=== PATIENT | female | born 1935 | race Caucasian/White ===

== ENCOUNTER 2016-06-18 08:00 | Outpatient (CLI) | payer MEDICARE, OTHER | END 2016-06-18 08:01 | disposition home or self-care (01) | DX: R31.9 Hematuria, unspecified (principal) ==

== ENCOUNTER 2016-07-06 19:16 | Outpatient (CLI) | payer MEDICARE, OTHER | END 2016-07-06 19:17 | disposition critical access hospital (66) | DX: M25.571 Pain in right ankle and joints of right foot (principal); W18.30XA Fall on same level, unspecified, initial encounter; Y92.009 Unspecified place in unspecified non-institutional (private) residence as the place of occurrence of the external cause | CPT/HCPCS: A0425; A0429 ==

== ENCOUNTER 2016-07-06 19:45 | Inpatient (IN) | payer MEDICARE, OTHER ==
[2016-07-06] MEDS ORDERED: NAPROXEN 250 MG TABLET PO STA (20:26)
[2016-07-06] MEDS ORDERED: NAPROXEN 250 MG TABLET PO ONE (20:32)
[2016-07-06] MEDS ORDERED: SODIUM CHLORIDE FLUSH 0.9% 10 ML SYRINGE IVP PRN ×2 (21:29→22:20)
[2016-07-06] MEDS ORDERED: ONDANSETRON ODT 4 MG TABLET TL PRN ×2 (21:29→22:20)
[2016-07-06] MEDS ORDERED: ACETAMINOPHEN 325 MG TABLET PO PRN ×2 (21:29→22:20)
[2016-07-06] MEDS ORDERED: BUPIVACAINE 0.5%-EPI 1:200000 PF 30 ML VIAL ONE (21:35)
[2016-07-06] MEDS ORDERED: KETOROLAC 15 MG/ML VIAL IVP PRN (21:43)
[2016-07-06] MEDS ORDERED: NON FORMULARY MED (Atenolol [Atenolol] 50 MG) PO SCH (21:45)
[2016-07-06] MEDS ORDERED: SODIUM CHLORIDE 0.9% 1,000 ML IV SCH (22:00)
[2016-07-06] MEDS ORDERED: TIMOLOL 0.5% OPHTH DROPS LEFTEYE SCH (22:00)
[2016-07-06] MEDS ORDERED: BRIMONIDINE 0.15% OPHTH DROPS 5 ML EACHEYE SCH (22:00)
[2016-07-06] MEDS ORDERED: SODIUM CHLORIDE FLUSH 0.9% 10 ML SYRINGE IVP SCH (22:00)
[2016-07-07] MEDS: SODIUM CHLORIDE FLUSH 0.9% 10 ML SYRINGE IVP SCH ×2 (00:19→14:00)
[2016-07-07] MEDS: SODIUM CHLORIDE 0.9% 1,000 ML IV SCH ×3 (00:19→20:57)
[2016-07-07] MEDS: KETOROLAC 15 MG/ML VIAL IVP PRN ×4 (00:21→19:06)
[2016-07-07] MEDS: PANTOPRAZOLE 40 MG TABLET PO SCH (06:08)
[2016-07-07] MEDS ORDERED: PANTOPRAZOLE 40 MG TABLET PO SCH (07:00)
[2016-07-07] MEDS ORDERED: metFORMIN 500 MG TABLET PO SCH ×3 (08:00→17:00)
[2016-07-07] MEDS ORDERED: POLYETHYLENE GLYCOL 3350 17 GM PACKET PO SCH (09:00)
[2016-07-07] MEDS ORDERED: SITAGLIPTIN PHOSPHATE PO SCH (09:00)
[2016-07-07] MEDS: POLYETHYLENE GLYCOL 3350 17 GM PACKET PO SCH (09:32)
[2016-07-07] MEDS: ATENOLOL 25 MG TABLET PO SCH ×2 (09:32→21:04)
[2016-07-07] MEDS: BRIMONIDINE 0.15% OPHTH DROPS 5 ML EACHEYE SCH ×2 (09:32→21:02)
[2016-07-07] MEDS: TIMOLOL 0.5% OPHTH DROPS LEFTEYE SCH ×2 (09:32→21:08)
[2016-07-07] MEDS ORDERED: ceFAZolin 1 GM VIAL IV ONE (15:30)
[2016-07-07] MEDS ORDERED: MIDAZOLAM 2 MG/2 ML VIAL IVP ONE (15:30)
[2016-07-07] MEDS ORDERED: LIDOCAINE-MPF 2% 5 ML VIAL IM ONE (15:30)
[2016-07-07] MEDS ORDERED: PROPOFOL 1000 MG/100 ML IV ONE (15:30)
[2016-07-07] MEDS ORDERED: fentaNYL 100 MCG/2 ML VIAL IVP ONE (15:30)
[2016-07-07] MEDS ORDERED: ONDANSETRON 4 MG/2 ML VIAL IVP ONE (15:30)
[2016-07-07] MEDS ORDERED: DEXAMETHASONE 4 MG/ML VIAL IVP ONE (15:30)
[2016-07-07] MEDS ORDERED: BUPIVACAINE 0.25% PF 30 ML VIAL SUBQ ONE ×2 (15:36→16:07)
[2016-07-07] MEDS ORDERED: LIDOCAINE 1% 50 ML MDV SUBQ ONE ×2 (15:37→16:07)
[2016-07-07] MEDS ORDERED: LACTATED RINGERS 1,000 ML IV ONE ×2 (15:37→16:01)
[2016-07-07] MEDS ORDERED: ACETAMINOPHEN 325 MG TABLET PO PRN (16:24)
[2016-07-07] MEDS ORDERED: ONDANSETRON 4 MG/2 ML VIAL IVP PRN (16:24)
[2016-07-07] MEDS ORDERED: PROCHLORPERAZINE 10 MG/2 ML VIAL IVP PRN (16:24)
[2016-07-07] MEDS ORDERED: fentaNYL 100 MCG/2 ML VIAL ONE (17:14)
[2016-07-07] MEDS ORDERED: KETOROLAC 15 MG/ML VIAL ONE (17:15)
[2016-07-07] MEDS ORDERED: hydrALAZINE INJ 20 MG/ML VIAL ONE (17:22)
[2016-07-07] MEDS: SODIUM CHLORIDE FLUSH 0.9% 10 ML SYRINGE IVP PRN (19:06)
[2016-07-07] MEDS: LATANOPROST 0.005% OPHTH DROPS EACHEYE SCH (20:57)
[2016-07-07] MEDS: INSULIN ASPART 300 UNIT/3 ML PEN SUBQ SCH (20:59)
[2016-07-07] MEDS ORDERED: SODIUM CHLORIDE FLUSH 0.9% 10 ML SYRINGE IVP SCH (22:00)
[2016-07-07] MEDS: ceFAZolin 2 GM/50 ML 50 ML IV SCH (22:49)
[2016-07-08] MEDS: KETOROLAC 15 MG/ML VIAL IVP PRN ×2 (03:43→10:08)
[2016-07-08] MEDS: SODIUM CHLORIDE 0.9% 1,000 ML IV SCH ×2 (06:40→17:36)
[2016-07-08] MEDS: ceFAZolin 2 GM/50 ML 50 ML IV SCH (06:42)
[2016-07-08] MEDS: PANTOPRAZOLE 40 MG TABLET PO SCH (06:43)
[2016-07-08] MEDS: BRIMONIDINE 0.15% OPHTH DROPS 5 ML EACHEYE SCH ×2 (09:22→21:42)
[2016-07-08] MEDS: TIMOLOL 0.5% OPHTH DROPS LEFTEYE SCH ×2 (09:22→21:46)
[2016-07-08] MEDS: ATENOLOL 25 MG TABLET PO SCH ×2 (09:23→21:36)
[2016-07-08] MEDS: POLYETHYLENE GLYCOL 3350 17 GM PACKET PO SCH (09:23)
[2016-07-08] MEDS: INSULIN ASPART 300 UNIT/3 ML PEN SUBQ SCH ×7 (09:24→21:36)
[2016-07-08] MEDS: SODIUM CHLORIDE FLUSH 0.9% 10 ML SYRINGE IVP PRN ×3 (10:09→22:18)
[2016-07-08] MEDS ORDERED: MORPHINE 2 MG/ML SYRINGE IVP PRN (16:58)
[2016-07-08] MEDS: MORPHINE 2 MG/ML SYRINGE IVP PRN ×2 (17:33→22:18)
[2016-07-08] MEDS: LATANOPROST 0.005% OPHTH DROPS EACHEYE SCH (21:36)
[2016-07-08] MEDS: SENNA 8.6 MG TABLET PO SCH (21:43)
[2016-07-08] MEDS: DOCUSATE SODIUM 250 MG CAPSULE PO SCH (21:44)
[2016-07-09] MEDS: SODIUM CHLORIDE 0.9% 1,000 ML IV SCH ×3 (01:23→21:31)
[2016-07-09] MEDS: PANTOPRAZOLE 40 MG TABLET PO SCH (06:36)
[2016-07-09] MEDS: SENNA 8.6 MG TABLET PO SCH ×2 (08:48→21:17)
[2016-07-09] MEDS: BRIMONIDINE 0.15% OPHTH DROPS 5 ML EACHEYE SCH ×2 (08:48→21:23)
[2016-07-09] MEDS: POTASSIUM CHLORIDE 20 MEQ TABLET PO SCH ×2 (08:48→21:24)
[2016-07-09] MEDS: DOCUSATE SODIUM 250 MG CAPSULE PO SCH ×2 (08:49→21:24)
[2016-07-09] MEDS: NAPROXEN 250 MG TABLET PO PRN ×2 (08:49→18:17)
[2016-07-09] MEDS: ATENOLOL 25 MG TABLET PO SCH ×2 (08:49→21:25)
[2016-07-09] MEDS: INSULIN ASPART 300 UNIT/3 ML PEN SUBQ SCH ×7 (08:50→21:26)
[2016-07-09] MEDS: POLYETHYLENE GLYCOL 3350 17 GM PACKET PO SCH (08:50)
[2016-07-09] MEDS: TIMOLOL 0.5% OPHTH DROPS LEFTEYE SCH ×2 (09:40→21:16)
[2016-07-09] MEDS: LATANOPROST 0.005% OPHTH DROPS EACHEYE SCH (21:26)
[2016-07-10] MEDS: PANTOPRAZOLE 40 MG TABLET PO SCH (06:05)
[2016-07-10] MEDS: SODIUM CHLORIDE 0.9% 1,000 ML IV SCH ×2 (06:05→11:27)
[2016-07-10] MEDS: INSULIN ASPART 300 UNIT/3 ML PEN SUBQ SCH ×4 (09:11→12:50)
[2016-07-10] MEDS: POLYETHYLENE GLYCOL 3350 17 GM PACKET PO SCH (09:24)
[2016-07-10] MEDS: POTASSIUM CHLORIDE 20 MEQ TABLET PO SCH (09:25)
[2016-07-10] MEDS: ATENOLOL 25 MG TABLET PO SCH (09:25)
[2016-07-10] MEDS: DOCUSATE SODIUM 250 MG CAPSULE PO SCH (09:25)
[2016-07-10] MEDS: SENNA 8.6 MG TABLET PO SCH (09:25)
[2016-07-10] MEDS: NAPROXEN 250 MG TABLET PO PRN (09:25)
[2016-07-10] MEDS: TIMOLOL 0.5% OPHTH DROPS LEFTEYE SCH (09:26)
[2016-07-10] MEDS: BRIMONIDINE 0.15% OPHTH DROPS 5 ML EACHEYE SCH (09:27)
[2016-07-10] MEDS ORDERED: POTASSIUM CHLORIDE 20 MEQ TABLET PO SCH ×2 (12:00→13:00)
== END 2016-07-10 14:06 | DRG 493 ==
PROC: 0QSJ04Z Reposition Right Fibula with Internal Fixation Device, Open Approach (ICD-10-PCS; principal; 2016-07-07 14:15)
PROC: 0QSG04Z Reposition Right Tibia with Internal Fixation Device, Open Approach (ICD-10-PCS; principal; 2016-07-07 14:15)
DX: S82.851A Displaced trimalleolar fracture of right lower leg, initial encounter for closed fracture (principal); Z68.45 Body mass index [BMI] 70 or greater, adult; W01.0XXA Fall on same level from slipping, tripping and stumbling without subsequent striking against object, initial encounter; Y93.H2 Activity, gardening and landscaping; I10 Essential (primary) hypertension; E11.9 Type 2 diabetes mellitus without complications; Y92.007 Garden or yard of unspecified non-institutional (private) residence as the place of occurrence of the external cause; I15.2 Hypertension secondary to endocrine disorders; E11.22 Type 2 diabetes mellitus with diabetic chronic kidney disease; H35.30 Unspecified macular degeneration; H54.8 Legal blindness, as defined in USA; M54.5 Low back pain; E66.01 Morbid (severe) obesity due to excess calories; N18.9 Chronic kidney disease, unspecified; H40.9 Unspecified glaucoma; I87.8 Other specified disorders of veins; E78.5 Hyperlipidemia, unspecified; K21.9 Gastro-esophageal reflux disease without esophagitis; Z66 Do not resuscitate; Z79.82 Long term (current) use of aspirin; Z79.84 Long term (current) use of oral hypoglycemic drugs; Z86.59 Personal history of other mental and behavioral disorders

== ENCOUNTER 2020-02-26 11:41 | Outpatient (CLI) | payer MEDICARE, OTHER | END 2020-02-26 11:42 | disposition EMS.NT | LOC: EMS 11:41 | PROVIDERS: ATTEND Surgery | DX: R53.1 Weakness (principal) ==

== ENCOUNTER 2020-09-18 16:51 | Outpatient (CLI) | payer MEDICARE, OTHER | END 2020-09-18 16:52 | disposition EMS.NT | LOC: EMS 16:51 | DX: K62.5 Hemorrhage of anus and rectum (principal) ==

== ENCOUNTER 2020-11-27 13:00 | Outpatient (CLI) | payer MEDICARE, OTHER ==
[2020-11-27 17:57] LABS: BASOPHILS # (AUTO) 0.1 10^3/uL (0.0-0.1); BASOPHILS % (AUTO) 0.8 %; EOSINOPHILS # (AUTO) 0.2 10^3/uL (0.0-0.7); EOSINOPHILS % (AUTO) 1.9 %; HCT - HEMATOCRIT 44.5 % (37.0-47.0); HGB - HEMOGLOBIN 14.3 g/dL (12.0-16.0); LYMPHOCYTES # (AUTO) 3.9 10^3/uL (1.5-3.5); MEAN CORPUSCULAR HEMOGLOBIN 31.4 pg (27.0-31.0); MEAN CORPUSCULAR HGB CONC 32.1 g/dL (32.0-36.0); MEAN CORPUSCULAR VOLUME 97.6 fL (81.0-99.0); MEAN PLATELET VOLUME 11.3 fL (7.9-10.8); MONOCYTES # (AUTO) 0.6 10^3/uL (0.0-1.0); MONOCYTES % (AUTO) 7.6 %; NEUTROPHILS # (AUTO) 3.2 10^3/uL (1.5-6.6); NEUTROPHILS % (AUTO) 40.4 %; PLT - PLATELET COUNT 217 10^3/uL (130-450); RED BLOOD COUNT 4.56 10^6/uL (4.20-5.40); RED CELL DISTRIBUTION WIDTH 12.9 % (12.0-15.0)
[2020-11-27 18:12] LABS: ALBUMIN 4.4 g/dL (3.2-5.5); ALBUMIN/GLOBULIN RATIO 1.4 (1.0-2.2); ALKALINE PHOSPHATASE 62 IU/L (42-121); ALT ALANINE AMINOTRANSFERASE 24 IU/L (10-60); AST ASPARTATE AMINOTRANSFERASE 21 IU/L (10-42); BILIRUBIN,TOTAL 1.9 mg/dL (0.2-1.0); BUN - BLOOD UREA NITROGEN 20 mg/dL (6-20); CALCIUM 8.9 mg/dL (8.5-10.3); CARBON DIOXIDE - CO2 26 mmol/L (21-32); CHLORIDE 104 mmol/L (101-111); CHOL/HDL RATIO 3.4 (<4.4); CHOLESTEROL 182 mg/dL; CREATININE 0.7 mg/dL (0.4-1.0); GFR - MDRD 80 (>89); GLUCOSE 127 mg/dL (70-100); HDL CHOLESTEROL 54 mg/dL; LDL CHOLESTEROL,CALCULATED 102 mg/dL; LDL/HDL RATIO 1.9 (<4.4); SODIUM 140 mmol/L (135-145); TOTAL PROTEIN 7.5 g/dL (6.7-8.2); TRIGLYCERIDES 130 mg/dL; VLDL CHOLESTEROL 26 mg/dL
[2020-11-27 18:20] LABS: CREATININE,URINE 142.6 mg/dL; MICROALBUM/CREATININE RATIO,UR 44.9 ug/mg (<30.0); MICROALBUMIN,URINE 6.4 mg/dL (0-300.0)
[2020-11-27 18:21] LABS: THYROID STIMULATING HORMONE 3.21 uIU/mL (0.34-5.60)
[2020-11-27 20:38] LABS: ESTIMATED AVERAGE GLUCOSE 151 mg/dL (70-100); HEMOGLOBIN A1c% 6.9 % (4.27-6.07)
== END 2020-11-27 23:59 | disposition home or self-care (01) ==
LOC: LAB.WCP 13:00
PROVIDERS: ATTEND Physician Assistant Medical
DX: I10 Essential (primary) hypertension (principal); E78.5 Hyperlipidemia, unspecified; E11.9 Type 2 diabetes mellitus without complications
CPT/HCPCS: 36415; 80053; 80061; 82043; 82570; 83036; 83721; 84443; 85025

== ENCOUNTER 2022-04-23 08:00 | Outpatient (CLI) | payer MEDICARE, OTHER | END 2022-04-23 23:59 | disposition home or self-care (01) | LOC: LAB.WCP 08:00 | PROVIDERS: ATTEND Physician Assistant Medical | DX: R35.0 Frequency of micturition (principal) | CPT/HCPCS: 87077; 87086; 87181 ==

== ENCOUNTER 2022-11-26 13:06 | Emergency (ER) | payer MEDICARE, OTHER ==
--- NOTE | 2022-11-26 13:26 | ED Physician Documentation ---
History of Present Illness - Stated complaint Stated Complaint: GLF/AMS - Chief complaint Chief Complaint: Trauma Hd/Nk - Additonal information Additional information: 87-year-old female is dropped off at the emergency department without supporting family member for evaluation of a ground-level fall. The patient presents as very elderly appearing with significant facial bruising. Her speech vacillates between Macedonian and Anguillan. States that she fell 2 days ago. States that she is at [employer]. She keeps repeating [employer] 10 years to which I believe refers to employment. With the exception of facial bruising there is no other obvious ecchymosis on the body. History is limited due to patient's condition. There are no obvious neurofocal deficits. 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 HEENT: Cataracts - Present Medications Home Medications: Ambulatory Orders Medication Instructions Recorded Confirmed Atenolol 50 mg PO BID 09/22/12 07/06/16 Glipizide [Glucotrol Xl] 2.5 mg PO BIDWM 09/22/12 07/10/16 Metformin HCl [Glucophage] 1,000 mg PO BIDWM 09/22/12 07/10/16 Timolol 0.5% Ophth Drops [Timoptic 1 drops LEFTEYE BID 09/22/12 07/10/16 0.5% Ophth Drops] Brimonidine 0.15% Ophth Drops 1 drops EACHEYE BID 01/18/15 07/06/16 [Alphagan P 0.15% Ophth Drops] Latanoprost 0.005% Ophth Drops 1 drop EACHEYE QPM 01/18/15 07/06/16 [Xalatan Ophth Drops] Sitagliptin Phosphate [Januvia] 100 mg PO DAILY 01/18/15 07/07/16 Aspirin [Aspirin EC] 81 mg PO DAILY 07/07/16 07/07/16 raNITIdine HCL [Ranitidine HCl] 150 mg PO BID 07/07/16 07/07/16 Acetaminophen [Tylenol] 650 mg PO Q6H PRN 07/10/16 07/10/16 Naproxen [Naprosyn] 250 mg PO TID PRN #0 tablet 07/10/16 Ondansetron Odt [Zofran Odt] 4 mg SL Q4H PRN 07/10/16 07/10/16 - Allergies Allergies/Adverse Reactions: Allergies Allergy/AdvReac Type Severity Reaction Status Date / Time codeine [Codeine] Allergy Unknown unknown Verified 11/26/22 13:17 lisinopril Allergy Unknown unknown Verified 11/26/22 13:17 losartan potassium * Allergy Unknown unknown Verified 11/26/22 13:17 [From Cozaar] meperidine HCl * Allergy Unknown unknow Verified 11/26/22 13:17 [From Demerol] niacin Allergy Unknown unknown Verified 11/26/22 13:17 - Social History Does the pt smoke?: No Smoking Status: Never smoker Does the pt drink ETOH?: No Does the pt have substance abuse?: No - Immunizations Immunizations are current?: No Immunizations: TDAP >10years/unknown PD ED PE EXPANDED - General General: Alert, In Pain, Other (Elderly geriatric appearance. Significant facial bruising of the lower mouth and anterior jaw) - HEENT HEENT: Other (No trismus or malocclusion noted. Phonates normally. Tolerates oral secretions.). No: Atraumatic (Facial bruising in the lower jaw and around the right eye.) - Cardiac Cardiac: Regular Rate, Murmur Present, Radial strong equal, Pedal strong equal, Cap refill < 2 sec - Respiratory Respiratory: Clear to ausultation epifanio. No: Distress, Labored - Back Back: Vertebral tenderness (Some lower midline thoracic and lumbar tenderness was elicited without crepitus step-off or deformity.) - Derm Derm: Bruising - Extremities Extremities: Other (No pain with movement of bilateral knees or hips. No mal rotation or shortening). No: Deformity, Tenderness - Neuro Neuro: Confused, Other (Blind in the right eye. No other focal cranial deficits noted.) - GCS Eye Opening: Spontaneous Motor: Obeys Commands Verbal: Confused Total: 14 Results - Vitals Vitals: Vital Signs - 24 hr 11/26/22 11/26/22 11/26/22 13:17 14:08 14:30 Temperature 36.5 C 36.6 C Heart Rate 68 66 59 L Respiratory 18 20 18 Rate Blood Pressure 179/84 H 174/77 H 174/77 H O2 Saturation 99 98 99 11/26/22 11/26/22 11/26/22 15:30 16:00 17:21 Temperature 36.9 C Heart Rate 71 73 73 Respiratory 15 19 23 Rate Blood Pressure 180/79 H 172/74 H 178/77 H O2 Saturation 99 98 97 Oxygen O2 Source Room air - Labs Labs: Laboratory Tests 11/26/22 11/26/22 11/26/22 13:32 13:53 13:56 WBC 8.5 RBC 5.12 Hgb 15.9 Hct 48.2 H MCV 94.1 MCH 31.1 H MCHC 33.0 RDW 12.5 Plt Count 195 MPV 10.8 Neut # (Auto) 4.6 Lymph # (Auto) 3.0 [place] # (Auto) 0.7 Eos # (Auto) 0.1 Baso # (Auto) 0.0 Absolute Nucleated RBC 0.00 Nucleated RBC % 0.0 Sodium 138 Potassium 3.9 Chloride 103 Carbon Dioxide 28 Anion Gap 7.0 BUN 17 Creatinine 0.8 Estimated GFR (MDRD) 68 L Glucose 145 H Calcium 9.2 Total Bilirubin 2.1 H AST 16 ALT 14 Alkaline Phosphatase 73 Total Creatine Kinase 62 Total Protein 6.9 Albumin 4.2 Globulin 2.7 Albumin/Globulin Ratio 1.6 Lipase 12 Urine Color DARK YELLOW Urine Clarity CLEAR Urine pH 5.5 Ur Specific [place] 1.020 Urine Protein NEGATIVE Urine Glucose (UA) NEGATIVE Urine Ketones TRACE Urine Occult Blood NEGATIVE Urine Nitrite NEGATIVE Urine Bilirubin NEGATIVE Urine Urobilinogen 0.2 (NORMAL) Ur Leukocyte Esterase TRACE H Urine RBC 0-5 Urine WBC 4-5 Ur Epithelial Cells FEW Transitional Ur Squamous Epith Cells MOD Squamous H Urine Bacteria Few Ur Microscopic Review INDICATED Urine Culture Comments NOT INDICATED - Rads (name of study) Ct abd pelvis Relevant Findings:: Final report received (No acute intra-abdominal or pelvic process.) CT cervical sp Relevant Findings:: Final report received ( yes degenerative disc disease no fracture.) CT head Relevant Findings:: Final report received (No acute intracranial process) max fac CT Relevant Findings:: Final report received (No acute fracture) PD Medical Decision Making - ED course Complexity details: reviewed results, re-evaluated patient, d/w patient ED course: 87-year-old female was dropped off at the hospital for evaluation of facial injuries. The individual that dropped her off did not give us a preceding history but the patient tells us that she fell 2 days ago and she presents with a large amount of bruising on her face and jaw. She did not have any obvious focal neurodeficits. The patient spoke a combination of [place]guillan and Macedonian and without a preceding history we were unsure if this was a new finding. Therefore we did obtain CBC and electrolytes as well as a urinalysis. Per my interpretation no acute obvious findings are noted there. Subsequently though, given the large amount of bruising on her face she did receive a CT of the head, cervical spine maxillofacial bones chest x-ray and CT of the abdomen pelvis. Globally there was no acute findings with any of this imaging. Subsequently we did give the patient a liter of IV fluids and we road tested her. She ambulated easily with a walker. I did speak on the phone with the patient's son Elan who is aware of the fall several days ago but had not been aware that she was brought to the hospital. I discussed with him the lab and imaging findings and at this time he is comfortable picking his mom up and she is discharged home in stable condition. The usual emergent return precautions were discussed. Departure - Departure Disposition: 01 Home, Self Care Clinical Impression: Fall from ground level Facial contusion Qualifiers: Encounter type: initial encounter Qualified Code(s): S00.83XA - Contusion of other part of head, initial encounter Condition: Stable Record reviewed to determine appropriate education?: Yes Comments: Ana was seen in the emergency department when she was dropped off for evaluation of facial bruising after she had reported a fall 2 days ago. The labs done today in the ER did not show any worrisome findings. We did do a CT of the head cervical spine bones of the face and of her abdomen and pelvis without any acute obvious findings noted. She has been able to ambulate easily with a walker. At this time it is important to continue follow-up with her primary care doctor. She can continue to take her usual medications. She should return to the ER for any sudden severe headaches, slurred speech or facial droop. I do encourage her to walk at all times with a walker in order to prevent falls in the future. Forms: PCP List
[2022-11-26 13:36] LABS: BASOPHILS % (AUTO) 0.5 %; EOSINOPHILS # (AUTO) 0.1 10^3/uL (0.0-0.7); EOSINOPHILS % (AUTO) 1.1 %; HCT - HEMATOCRIT 48.2 % (37.0-47.0); HGB - HEMOGLOBIN 15.9 g/dL (12.0-16.0); LYMPHOCYTES % (AUTO) 35.3 %; MEAN CORPUSCULAR HEMOGLOBIN 31.1 pg (27.0-31.0); MEAN CORPUSCULAR VOLUME 94.1 fL (81.0-99.0); MEAN PLATELET VOLUME 10.8 fL (7.9-10.8); MONOCYTES # (AUTO) 0.7 10^3/uL (0.0-1.0); MONOCYTES % (AUTO) 8.2 %; NEUTROPHILS # (AUTO) 4.6 10^3/uL (1.5-6.6); NEUTROPHILS % (AUTO) 54.7 %; PLT - PLATELET COUNT 195 10^3/uL (130-450); RED BLOOD COUNT 5.12 10^6/uL (4.20-5.40); RED CELL DISTRIBUTION WIDTH 12.5 % (12.0-15.0); WHITE BLOOD COUNT 8.5 x10^3/uL (4.8-10.8)
[2022-11-26 14:13] LABS: BILIRUBIN,URINE NEGATIVE (NEGATIVE); GLUCOSE, URINE (UA) NEGATIVE (NEGATIVE); KETONES,URINE (UA) TRACE mg/dL (NEGATIVE); LEUKOCYTE ESTERASE, URINE TRACE (NEGATIVE); NITRITE,URINE NEGATIVE (NEGATIVE); OCCULT BLOOD,URINE NEGATIVE (NEGATIVE); PH,URINE 5.5 PH (5.0-7.5); PROTEIN,URINE NEGATIVE (NEGATIVE); UROBILINOGEN,URINE 0.2 (NORMAL) E.U./dL (NORMAL)
[2022-11-26 14:15] LABS: CLARITY,URINE CLEAR (CLEAR)
--- NOTE | 2022-11-26 14:15 | XRAY Report ---
PROCEDURE: Chest 1 View X-Ray INDICATIONS: chest pain TECHNIQUE: One view of the chest was acquired. COMPARISON: None. FINDINGS: Surgical changes and devices: None. Lungs and pleura: No pleural effusions or pneumothorax. Lungs are clear. Mediastinum: Mediastinal contours appear normal. Heart size is enlarged. Bones and chest wall: No suspicious bony lesions. Overlying soft tissues appear unremarkable. IMPRESSION: No acute cardiopulmonary process. Reviewed by: Ariane Henderson MD on 11/26/2022 2:13 PM PDT Approved by: Ariane Henderson MD on 11/26/2022 2:13 PM PDT Station ID: [id number]
[2022-11-26 14:21] LABS: ALBUMIN 4.2 g/dL (3.2-5.5); ALBUMIN/GLOBULIN RATIO 1.6 (1.0-2.2); BILIRUBIN,TOTAL 2.1 mg/dL (0.2-1.0); CALCIUM 9.2 mg/dL (8.5-10.3); CREATININE 0.8 mg/dL (0.6-1.3); POTASSIUM 3.9 mmol/L (3.5-4.5); TOTAL PROTEIN 6.9 g/dL (6.4-8.9)
[2022-11-26] MEDS ORDERED: SODIUM CHLORIDE 0.9% 1,000 ML IV STA (14:25)
[2022-11-26 14:35] LABS: BACTERIA,URINE Few /HPF (None Seen); EPITHELIAL CELLS,UR FEW Transitional /HPF (<= Few); RBC,URINE 0-5 /HPF (0-5); SQUAMOUS EPITHELIAL CELL,UR MOD Squamous (<= Few)
--- NOTE | 2022-11-26 15:51 | CT Report ---
PROCEDURE: HEAD WO INDICATIONS: glf 2 days ago TECHNIQUE: Noncontrast 4.5 mm thick angled axial sections acquired from the foramen magnum to the vertex. For r adiation dose reduction, the following was used: automated exposure control, adjustment of mA and/or kV according to patient size. COMPARISON: None. FINDINGS: Image quality: Excellent. The ventricular system and cortical sulci demonstrate atrophy, consistent for patient's stated age. There are areas of hypodensity in the periventricular and subcortical white matter. There is no acut e intra or extra-axial fluid collection. No acute hemorrhage, mass lesion or midline shift. Brainst em is unremarkable. Right lobe demonstrates linear areas of hyperdensity. Sinuses are aerated. Osseous structures are int act. IMPRESSION: 1. No acute intracranial process. 2. Moderate atrophy and chronic microvascular ischemic changes. L3. Right globe demonstrates areas of hyperdensity suggestive of calcification and possibly prior karey maisha. Small area of superimposed globe hemorrhage cannot be definitively excluded and clinical correl ation is recommended. Reviewed by: Ariane Henderson MD on 11/26/2022 3:50 PM PDT Approved by: Ariane Henderson MD on 11/26/2022 3:50 PM PDT Station ID: [id number]
--- NOTE | 2022-11-26 16:11 | CT Report ---
PROCEDURE: CERVICAL SPINE WO INDICATIONS: glf TECHNIQUE: Noncontrast 3 mm thick sections acquired from the skull base to the T4 level. Sagittal and coronal r eformats were then constructed. For radiation dose reduction, the following was used: automated exp osure control, adjustment of mA and/or kV according to patient size. COMPARISON: None. FINDINGS: Image quality: Excellent. Bones: No fractures or dislocations. Visualized superior ribs are intact. Multilevel degenerative c hanges without fracture. Soft tissues: Prevertebral soft tissues are normal in thickness. No paravertebral hematomas. No ap ical pneumothoraces. IMPRESSION: Degenerative changes of visualized fracture. Reviewed by: Ariane Henderson MD on 11/26/2022 4:09 PM PDT Approved by: Ariane Henderson MD on 11/26/2022 4:09 PM PDT Station ID: [id number]
--- NOTE | 2022-11-26 16:14 | CT Report ---
PROCEDURE: MAXILLOFACIAL WO INDICATIONS: glf; facial bruising TECHNIQUE: Noncontrast 1.5 mm thick axial images acquired from the mandible through the frontal sinuses, with co davie and sagittal reformatting. For radiation dose reduction, the following was used: automated ex posure control, adjustment of mA and/or kV according to patient size. COMPARISON: None. FINDINGS: Image quality: Excellent. Bones and teeth: Orbital shetty are intact. Areas of hyperdensity are noted within the right lobe. S inus shetty show no fracture or deformity. Nasal bones and septum are intact. Visualized portions of the mandible demonstrate no fractures or subluxation. Zygomatic arches are intact. Pterygoid plate s are intact. Visualized portions of the skull base and auditory canals are intact. Sinuses: Paranasal sinuses are aerated, without fluid levels, mucosal thickening, or mucoceles. Mas toid air cells are aerated. Soft tissues: No edema, masses, or fluid collections. No enlarged lymph nodes. No soft tissue lace rations or debris. Soft tissue density is noted within the left external auditory canal possibly rep resenting cellular debris versus cerumen. Visualization is recommended as indicated. Vascular: Visualized vascular structures appear normal in the absence of contrast. Bony vascular fo ramina and canals are intact. IMPRESSION: No visualized fracture. Areas of hyperdensity within the left globe suspicious for calcification. Small areas of underlying h emorrhage cannot be definitively excluded. Reviewed by: Ariane Henderson MD on 11/26/2022 4:12 PM PDT Approved by: Ariane Henderson MD on 11/26/2022 4:12 PM PDT Station ID: [id number]
--- NOTE | 2022-11-26 16:15 | CT Report ---
PROCEDURE: ABDOMEN/PELVIS W INDICATIONS: glf; low back and abd pain CONTRAST: 100ml omni 320 TECHNIQUE: After the administration of IV contrast, 5 mm thick sections acquired from the diaphragms to the symp hysis. 5 mm thick coronal and sagittal reformats were acquired. For radiation dose reduction, the f ollowing was used: automated exposure control, adjustment of mA and/or kV according to patient size. COMPARISON: CT abdomen pelvis 01/28/2015 FINDINGS: Image quality: Excellent. Lung bases and heart: Unremarkable. Liver: No solid mass. Gallbladder and biliary tree: Removed. Spleen: No splenomegaly. Pancreas: No pancreatic ductal dilation. Adrenals: No adrenal nodule. Kidneys and ureters: No hydronephrosis. No renal cystic lesion which requires follow up. No solid mas s. Bowel and peritoneum: No bowel distension. No pathologic free fluid. Mild hiatal hernia. Colonic dive rticula are present. No visualized inflammatory change. Lymph nodes: No central or retroperitoneal adenopathy. Vessels: No infrarenal aortic aneurysm. PELVIS Reproductive organs: Unremarkable. Bladder: No abnormal wall thickening, accounting for underdistension. Pelvic lymph nodes: No pelvic adenopathy by size criteria. Bones: No aggressive osseous abnormality. Other: No significant ventral or inguinal hernia. IMPRESSION: No acute intra-abdominal or pelvic process. Diverticulosis. Reviewed by: Ariane Henderson MD on 11/26/2022 4:14 PM PDT Approved by: Ariane Henderson MD on 11/26/2022 4:14 PM PDT Station ID: [id number]
[2022-11-26 19:00] VITALS: BP 196/101
[2022-11-26] MEDS ORDERED: IOVERSOL 320 100 ML VIAL IVP ONE (19:35)
[2022-11-26 19:47] VITALS: O2SAT 100
== END 2022-11-26 20:10 | disposition home or self-care (01) ==
LOC: ED 13:06
DX: S00.83XA Contusion of other part of head, initial encounter (principal); W18.30XA Fall on same level, unspecified, initial encounter; I10 Essential (primary) hypertension; E78.00 Pure hypercholesterolemia, unspecified; E11.9 Type 2 diabetes mellitus without complications; Z79.84 Long term (current) use of oral hypoglycemic drugs; Z79.899 Other long term (current) drug therapy; Z79.82 Long term (current) use of aspirin
CPT/HCPCS: 36415; 70450; 70486; 71045; 72125; 74177; 80053; 81001; 82550; 83690; 85025; 99283; 99284; Q9967; 81003; 87086

== ENCOUNTER 2023-04-15 08:00 | Outpatient (CLI) | payer MEDICARE, OTHER | END 2023-04-15 23:59 | disposition home or self-care (01) | LOC: LAB.N 08:00 | PROVIDERS: ATTEND Physician Assistant Medical | DX: R35.0 Frequency of micturition (principal) | CPT/HCPCS: 87086 ==

== ENCOUNTER 2023-05-21 19:16 | Outpatient (CLI) | payer MEDICARE, OTHER | END 2023-05-21 23:59 | disposition critical access hospital (66) | LOC: EMS 19:16 | DX: R41.0 Disorientation, unspecified (principal); R45.89 Other symptoms and signs involving emotional state | CPT/HCPCS: A0425; A0429 ==

== ENCOUNTER 2023-05-21 20:09 | Emergency (ER) | payer MEDICARE, OTHER ==
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
[2023-05-21 20:35] LABS: BASOPHILS % (AUTO) 0.5 %; EOSINOPHILS # (AUTO) 0.1 10^3/uL (0.0-0.7); EOSINOPHILS % (AUTO) 1.2 %; HCT - HEMATOCRIT 46.7 % (37.0-47.0); HGB - HEMOGLOBIN 15.1 g/dL (12.0-16.0); LYMPHOCYTES # (AUTO) 2.8 10^3/uL (1.5-3.5); LYMPHOCYTES % (AUTO) 35.2 %; MEAN CORPUSCULAR HEMOGLOBIN 31.5 pg (27.0-31.0); MEAN CORPUSCULAR HGB CONC 32.3 g/dL (32.0-36.0); MEAN CORPUSCULAR VOLUME 97.3 fL (81.0-99.0); MEAN PLATELET VOLUME 10.6 fL (7.9-10.8); MONOCYTES # (AUTO) 0.6 10^3/uL (0.0-1.0); NEUTROPHILS # (AUTO) 4.4 10^3/uL (1.5-6.6); PLT - PLATELET COUNT 205 10^3/uL (130-450); RED CELL DISTRIBUTION WIDTH 12.2 % (12.0-15.0); WHITE BLOOD COUNT 7.8 x10^3/uL (4.8-10.8)
[2023-05-21 20:40] LABS: MAGNESIUM 1.8 mg/dL (1.7-2.3)
[2023-05-21 20:47] LABS: ALBUMIN 4.3 g/dL (3.2-5.5); ALBUMIN/GLOBULIN RATIO 1.5 (1.0-2.2); BILIRUBIN,TOTAL 1.6 mg/dL (0.2-1.0); CALCIUM 9.7 mg/dL (8.5-10.3); CREATININE 0.7 mg/dL (0.6-1.3); PHOSPHORUS 2.7 mg/dL (2.5-5.0); POTASSIUM 3.9 mmol/L (3.5-4.5); TOTAL PROTEIN 7.1 g/dL (6.4-8.9)
[2023-05-21] MEDS ORDERED: iohexoL-300 100 ML VIAL ONE (21:02)
[2023-05-21 21:13] LABS: BILIRUBIN,URINE NEGATIVE (NEGATIVE); GLUCOSE, URINE (UA) NEGATIVE (NEGATIVE); KETONES,URINE (UA) TRACE mg/dL (NEGATIVE); LEUKOCYTE ESTERASE, URINE NEGATIVE (NEGATIVE); NITRITE,URINE NEGATIVE (NEGATIVE); OCCULT BLOOD,URINE NEGATIVE (NEGATIVE); PROTEIN,URINE NEGATIVE (NEGATIVE); UROBILINOGEN,URINE 0.2 (NORMAL) E.U./dL (NORMAL)
[2023-05-21 21:15] LABS: CLARITY,URINE CLEAR (CLEAR)
[2023-05-21] MEDS: iohexoL-300 100 ML VIAL IVP ONE (22:06)
[2023-05-21] MEDS: KETOROLAC 15 MG/ML VIAL IVP STA (22:31)
--- NOTE | 2023-05-21 22:31 | CT Report ---
PROCEDURE: Head WO INDICATIONS: AMS TECHNIQUE: Noncontrast 4.5 mm thick angled axial sections acquired from the foramen magnum to the vertex. For r adiation dose reduction, the following was used: automated exposure control, adjustment of mA and/or kV according to patient size. COMPARISON: 11/26/2022. FINDINGS: Image quality: Excellent. CSF spaces: Basal cisterns are patent. No extra-axial fluid collections. Ventricles are normal in size and shape. 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 A ge-related volume loss is also seen. No midline shift. No intracranial masses or hemorrhage. Gifford-w anny matter interface is normal. Skull and face: Calvarium and visualized facial bones are intact, without suspicious lesions. Sinuses: Visualized sinuses and mastoids are clear. IMPRESSION: No acute intracranial pathology. Moderate to large sized or infarction in left [employer] territory with encephalomalacia. Age-related volume loss. Reviewed by: Dain Summers MD on 05/21/2023 10:30 PM PST Approved by: Dain Summers MD on 05/21/2023 10:30 PM PST Station ID: [id number]
--- NOTE | 2023-05-21 22:35 | CT Report ---
PROCEDURE: Abdomen/Pelvis W INDICATIONS: abd. pain, tenderness CONTRAST: 100 ML OMNI 300 TECHNIQUE: After the administration of intravenous contrast, a CT scan of the abdomen and pelvis was performed. Images were recorded and evaluated at appropriate window settings. Reformats: coronal and sagittal. F or radiation dose reduction, the following was used: automated exposure control, adjustment of mA and /or kV according to patient size. COMPARISON: 11/26/2022. FINDINGS: Image quality: Diagnostic. Lower chest: Dependent atelectasis in posterior aspect of bilateral lung bases are seen. Heart size i s enlarged, no pericardial effusion.. Liver: No solid mass. Gallbladder and biliary tree: Surgically absent. No biliary dilation, accounting for post-cholecystec gil state. Spleen: No splenomegaly. Pancreas: No pancreatic ductal dilation. Adrenals: No adrenal nodule. Kidneys and ureters: No hydronephrosis. No renal cystic lesion which requires follow up. No solid mas s. Stomach, bowel and peritoneum: Small hiatal hernia is seen. No bowel distension. No pathologic free f luid. Sigmoid diverticulosis is seen without sigmoid colon wall thickening or mesenteric fat strandin g. No abscess collection. Lymph nodes: No central or retroperitoneal adenopathy. Vessels: No infrarenal aortic aneurysm. PELVIS Reproductive organs: Unremarkable. Bladder: No abnormal wall thickening, accounting for underdistention. Pelvic lymph nodes: No pelvic adenopathy by size criteria. Bones: No aggressive osseous abnormality. Other: Small umbilical hernia is seen containing anterior wall of a short segment of small bowel loop . IMPRESSION: 1. No acute inflammatory process is seen in abdomen or pelvis. No significant changes from previous s tudy. 2. Small hiatal hernia. Sigmoid diverticulosis without evidence of acute diverticulitis. No abscess c ollection. No free fluid of free. 3. No renal stones or hydronephrosis. Reviewed by: Dain Summers MD on 05/21/2023 10:33 PM PST Approved by: Dain Summers MD on 05/21/2023 10:33 PM PST Station ID: [id number]
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
[2023-05-22 00:53] LABS: AMPHETAMINE SCREEN,URINE NEGATIVE (NEGATIVE); BARBITURATE SCREEN,UR NEGATIVE (NEGATIVE); BENZODIAZEPINES SCREEN, URINE NEGATIVE (NEGATIVE); BUPRENORPHINE SCREEN, URINE NEGATIVE (NEGATIVE); COCAINE SCREEN URINE NEGATIVE (NEGATIVE); METHADONE SCREEN, URINE NEGATIVE (NEGATIVE); METHAMPHETAMINES SCREEN, URINE NEGATIVE (NEGATIVE); OPIATE SCREEN, URINE NEGATIVE (NEGATIVE); OXYCODONE SCREEN, URINE NEGATIVE (NEGATIVE); THC CANNABINOID SCREEN, URINE NEGATIVE (NEGATIVE); TRICYCLIC ANTIDEPRESSANT,URINE NEGATIVE (NEGATIVE)
[2023-05-22] MEDS: ACETAMINOPHEN 325 MG TABLET PO STA ×2 (04:02→19:02)
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
[2023-05-22] MEDS: INSULIN LISPRO 300 UNIT/3 ML PEN SUBQ SCH (08:06)
[2023-05-22] MEDS: ASPIRIN CHEW 81 MG TABLET PO STA (08:06)
[2023-05-22] MEDS: atenoloL 25 MG TABLET PO SCH (08:10)
[2023-05-22] MEDS: OLANZapine ODT 5 MG TABLET TL ONE (12:01)
--- NOTE | 2023-05-22 20:05 | ED Physician Documentation ---
ED Addendum - Addendum Addendum: The patient's son came to the emergency department. He visited with the patient for quite some time. Patient is calm and cooperative. Patient is feeling comfortable to go home. Her son is comfortable taking her home. Will prescribe Zyprexa as is recommended by telepsychiatry. Patient is calm and cooperative in the emergency department. She did have some right-sided abdominal tenderness, but had a normal CT yesterday. Does not have any peritoneal signs on the evaluation of the abdomen tonight. Ambulating well and without difficulty. Family counseled regarding signs and symptoms for which I believe and urgent re- evaluation would be necessary. Family with good understanding of and agreement to plan and is comfortable going home at this time This document was made in part using voice recognition software. While efforts are made to proofread this document, sound alike and grammatical errors may occur. Departure - Departure Disposition: Home, Self Care Clinical Impression: Dementia Qualifiers: Dementia type: unspecified type Dementia severity: unspecified severity Dementia behavioral or psychological symptom: with agitation Qualified Code(s): F03.911 - Unspecified dementia, unspecified severity, with agitation Condition: Good Instructions: ED Dementia Caregiver Support Follow-Up: your,doctor in 1 week [Other] Prescriptions: OLANZapine [Zyprexa] 5 mg PO QPM #30 tablet Comments: Your prescription was sent to [facility] in [place]. The Zyprexa was recommended by the psychiatrist. You give her 1 pill at night. Please return if she worsens. Forms: PCP List Discharge Date/Time: 05/22/23 21:04
[2023-05-22 21:09] VITALS: BP 140/76; O2SAT 97
== END 2023-05-22 21:04 | disposition home or self-care (01) ==
LOC: EDUNIT# → ED 20:09
DX: F03.911 Unspecified dementia, unspecified severity, with agitation (principal); I10 Essential (primary) hypertension; E11.9 Type 2 diabetes mellitus without complications; Z87.11 Personal history of peptic ulcer disease; Z79.4 Long term (current) use of insulin; Z79.899 Other long term (current) drug therapy
CPT/HCPCS: 36415; 70450; 74177; 80053; 80306; 81003; 83690; 83735; 84100; 85025; 87635; 96374; 99284; 99285; A9270; G0426; G0480; Q3014; Q9967; 81001; 82077; 87086; 90834

== ENCOUNTER 2023-05-26 08:00 | Outpatient (CLI) | payer MEDICARE, OTHER | END 2023-05-26 23:59 | disposition home or self-care (01) | LOC: PC 08:00 | PROVIDERS: ATTEND Nurse Practitioner Gerontology | DX: Z51.5 Encounter for palliative care (principal); F01.C11 Vascular dementia, severe, with agitation; F03.C11 Unspecified dementia, severe, with agitation; F05 Delirium due to known physiological condition; R41.82 Altered mental status, unspecified; F01.B2 Vascular dementia, moderate, with psychotic disturbance; Z66 Do not resuscitate | CPT/HCPCS: 99350 ==

== ENCOUNTER 2023-06-03 08:00 | Outpatient (CLI) | payer MEDICARE, OTHER | END 2023-06-03 23:59 | disposition home or self-care (01) | LOC: PC 08:00 | PROVIDERS: ATTEND Nurse Practitioner Gerontology | DX: Z51.5 Encounter for palliative care (principal); F01.C2 Vascular dementia, severe, with psychotic disturbance; Z63.8 Other specified problems related to primary support group; Z71.89 Other specified counseling | CPT/HCPCS: 99350 ==

== ENCOUNTER 2023-06-13 08:00 | Outpatient (CLI) | payer MEDICARE, OTHER | END 2023-06-13 23:59 | disposition home or self-care (01) | LOC: PC 08:00 | PROVIDERS: ATTEND Nurse Practitioner Gerontology | DX: Z51.5 Encounter for palliative care (principal); F03.90 Unspecified dementia, unspecified severity, without behavioral disturbance, psychotic disturbance, mood disturbance, and anxiety | CPT/HCPCS: 99426 ==

== ENCOUNTER 2023-06-15 08:00 | Outpatient (CLI) | payer MEDICARE, OTHER | END 2023-06-15 23:59 | disposition home or self-care (01) | LOC: PC 08:00 | PROVIDERS: ATTEND Nurse Practitioner Gerontology | DX: Z51.5 Encounter for palliative care (principal); F01.C2 Vascular dementia, severe, with psychotic disturbance; I10 Essential (primary) hypertension; Z71.89 Other specified counseling; Z66 Do not resuscitate | CPT/HCPCS: 99349 ==

== ENCOUNTER 2023-07-06 08:00 | Outpatient (CLI) | payer MEDICARE, OTHER | END 2023-07-06 08:01 | disposition home or self-care (01) | LOC: PC 08:00 | PROVIDERS: ATTEND Nurse Practitioner Gerontology | DX: Z51.5 Encounter for palliative care (principal); F01.C2 Vascular dementia, severe, with psychotic disturbance; Z63.8 Other specified problems related to primary support group; E11.22 Type 2 diabetes mellitus with diabetic chronic kidney disease; I12.9 Hypertensive chronic kidney disease with stage 1 through stage 4 chronic kidney disease, or unspecified chronic kidney disease; N18.2 Chronic kidney disease, stage 2 (mild); Z79.84 Long term (current) use of oral hypoglycemic drugs | CPT/HCPCS: 99350 ==

== ENCOUNTER 2023-08-02 08:00 | Outpatient (CLI) | payer MEDICARE, OTHER | END 2023-08-02 23:59 | disposition home or self-care (01) | LOC: PC 08:00 | PROVIDERS: ATTEND Nurse Practitioner Gerontology | DX: Z51.5 Encounter for palliative care (principal); E11.22 Type 2 diabetes mellitus with diabetic chronic kidney disease; N18.30 Chronic kidney disease, stage 3 unspecified; Z79.84 Long term (current) use of oral hypoglycemic drugs; F01.C2 Vascular dementia, severe, with psychotic disturbance; Z66 Do not resuscitate | CPT/HCPCS: 99350 ==

== ENCOUNTER 2023-08-27 10:04 | Outpatient (CLI) | payer MEDICARE, OTHER | END 2023-08-27 23:59 | disposition EMS.NT | LOC: EMS 10:04 | DX: Z03.89 Encounter for observation for other suspected diseases and conditions ruled out (principal) ==

== ENCOUNTER 2023-09-01 14:30 | Outpatient (CLI) | payer MEDICARE, OTHER | END 2023-09-01 23:59 | disposition home or self-care (01) | LOC: PC 14:30 | PROVIDERS: ATTEND Nurse Practitioner Gerontology | DX: Z51.5 Encounter for palliative care (principal); I12.9 Hypertensive chronic kidney disease with stage 1 through stage 4 chronic kidney disease, or unspecified chronic kidney disease; E11.22 Type 2 diabetes mellitus with diabetic chronic kidney disease; N18.30 Chronic kidney disease, stage 3 unspecified; E66.9 Obesity, unspecified; F01.C2 Vascular dementia, severe, with psychotic disturbance; I95.2 Hypotension due to drugs; H54.40 Blindness, one eye, unspecified eye; Z65.8 Other specified problems related to psychosocial circumstances; Z79.84 Long term (current) use of oral hypoglycemic drugs; Z79.899 Other long term (current) drug therapy | CPT/HCPCS: 99350 ==

== ENCOUNTER 2023-09-22 16:45 | Outpatient (CLI) | payer MEDICARE, OTHER | END 2023-09-22 23:59 | disposition home or self-care (01) | LOC: PC 16:45 | PROVIDERS: ATTEND Nurse Practitioner Gerontology | DX: Z51.5 Encounter for palliative care (principal); F01.C2 Vascular dementia, severe, with psychotic disturbance; I12.9 Hypertensive chronic kidney disease with stage 1 through stage 4 chronic kidney disease, or unspecified chronic kidney disease; E11.22 Type 2 diabetes mellitus with diabetic chronic kidney disease; N18.2 Chronic kidney disease, stage 2 (mild); Z79.4 Long term (current) use of insulin; Z79.84 Long term (current) use of oral hypoglycemic drugs; Z91.81 History of falling | CPT/HCPCS: 99348 ==

== ENCOUNTER 2023-11-09 13:40 | Outpatient (CLI) | payer MEDICARE, OTHER | END 2023-11-09 23:59 | disposition home or self-care (01) | LOC: PC 13:40 | PROVIDERS: ATTEND Nurse Practitioner Gerontology | DX: Z51.5 Encounter for palliative care (principal); F01.C2 Vascular dementia, severe, with psychotic disturbance; I12.9 Hypertensive chronic kidney disease with stage 1 through stage 4 chronic kidney disease, or unspecified chronic kidney disease; E11.22 Type 2 diabetes mellitus with diabetic chronic kidney disease; N18.2 Chronic kidney disease, stage 2 (mild); H40.9 Unspecified glaucoma; Z79.899 Other long term (current) drug therapy; Z79.84 Long term (current) use of oral hypoglycemic drugs; Z79.4 Long term (current) use of insulin; Z74.1 Need for assistance with personal care; Z66 Do not resuscitate; Z71.89 Other specified counseling | CPT/HCPCS: 99349 ==